=== PATIENT | male | born 1965 | race Caucasian/White ===

== ENCOUNTER 2023-05-01 20:02 | Emergency (ER) | payer OTHER, SELFPAY ==
[2023-05-01] VITALS (8 sets, daily range): BP systolic 157–187; BP diastolic 85–98; PULSE 70–86; RESP 18–22; TEMP 36.8; O2SAT 94–95; BMI 37.6
--- NOTE | 2023-05-01 20:09 | ECG_ITS ---
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 Measurements Intervals [place] Rate: 72 P: 31 MA: 130 QRS: -7 QRSD: 107 T: 39 QT: 387 QTc: 426 Interpretive Statements SINUS RHYTHM WITH SINUS ARRHYTHMIA NONSPECIFIC T-WAVE ABNORMALITY No previous ECG available for comparison Electronically Signed On 05-02-2023 2:54:09 CDT by Devonte Lange M.D. [id number]
--- NOTE | 2023-05-01 20:09 | XRR_ITS ---
PROCEDURE INFORMATION: Exam: XR Chest Exam date and time: 05/01/2023 8:27 PM Age: 57 years old Clinical indication: Pain; Chest pressure; Additional info: Chest pain TECHNIQUE: Imaging protocol: Radiologic exam of the chest. Views: 1 view. COMPARISON: CR XR chest 2V* [id number] 03/02/2017 3:37 PM FINDINGS: Lungs: Unremarkable. No consolidation. Pleural spaces: Unremarkable. No pleural effusion. No pneumothorax. Heart/Mediastinum: Cardiomegaly. Bones/joints: Unremarkable. XR/XR chest 1V portable [id number] IMPRESSION: Cardiomegaly, negative for infiltrate
--- NOTE | 2023-05-01 20:17 | ED_ITS ---
HPI - Chest Pain General: Chief Complaint: Chest Pain Stated Complaint: cp, high bp Time Seen by Provider: 05/01/23 20:09 History of Present Illness: Presents to the ER with complaints of chest pain and high blood pressure. Patient [place] any shortness of breath nausea vomiting and diaphoresis. Patient is not currently on any medicines. MD complaint: chest pain Onset (ago): hour(s) (Several hours) Timing of current episode: constant and now resolved Prior episodes: No Pain location: left chest Pain radiation: none Severity: mild Quality: sharp Relieving factors: nothing Exacerbating factors: palpation Associated symptoms: Reports no associated symptoms Treatment prior to arrival: none Review of Systems General: Reports: 10 or more systems reviewed and unremarkable except in HPI and below Physical Exam Const: COMMON NORMALS: no acute distress, average body habitus, patient oriented x3, no limitations, healthy appearing, alert and well nourished HENMT: COMMON NORMALS: normocephalic, atraumatic, hearing grossly normal bilaterally, external ears normal, Normal external nose present and moist oral mucous membranes HEAD & SCALP: normocephalic and atraumatic NOSE: Normal external nose present EXTERNAL EAR: Yes external ears normal Eye: COMMON NORMALS: Equal, round and reactive pupils present, EOMs intact bilaterally, conjunctivae normal and no scleral icterus CONJUNCTIVA: Yes conjunctivae normal PUPIL: Yes Equal, round and reactive pupils present Neck/C-Spine: COMMON NORMALS: full ROM, no lymphadenopathy, supple, no meningeal signs, no JVD and Thyroid normal THYROID: Thyroid normal Lymph: LYMPHATIC: no lymphadenopathy noted Chest: COMMONS NORMALS: normal inspection of the chest CHEST: Yes localized rib tenderness with anteroposterior compression Resp: COMMON NORMALS: normal respiratory effort, No retractions, No use of accessory muscles and clear to auscultation bilaterally AUSCULTATION: clear to auscultation bilaterally Cardio: COMMON NORMALS: no JVD, regular rate, regular rhythm, S1 normal heart sound present, S2 normal heart sound present, No gallops present (Cardio), No clicks present (Cardio), No murmurs present (Cardio) and No rub (Cardio) RATE: regular rate RHYTHM: regular rhythm HEART SOUNDS: S1 normal heart sound present and S2 normal heart sound present GI: COMMON NORMALS: Normal to inspection, nondistended, normoactive bowel sounds present, Soft to palpation, non-tender, No hepatosplenomegaly present and no masses PALPATION: Yes Soft to palpation and Yes No hepatosplenomegaly present : COMMON NORMALS: Yes no CVA tenderness BLADDER/KIDNEY EXAM: Yes no CVA tenderness Back/Pelvis: COMMON NORMALS: no CVA tenderness Neuro: COMMON NORMALS: patient oriented x3 SENSORIUM/ORIENTATION: Yes alert MENINGEAL SIGNS: Yes no meningeal signs Course Vital Signs: Vital signs: Vital Signs Temperature 98.2 F 05/01/23 20:13 Pulse Rate 82 05/01/23 22:20 Respiratory Rate 18 05/01/23 20:52 Blood Pressure 168/97 05/01/23 22:20 Pulse Oximetry 95 05/01/23 22:20 Oxygen Delivery Me thod Room Air 05/01/23 22:20 MDM - Chest Pain Medical Decision Making Patient presents to the ER with intermittent chest pain on the left side with no radiation no diaphoresis no shortness of breath no nausea vomiting. Patient does have some high blood pressure but is not currently on any medicine. Patient does state he has had this chest pain before in the past and they called costochondritis and went away after couple days. Patient's pain is reproducible with palpation. Cardiac work-up was obtained which showed CBC CMP benign, chest x-ray negative, serial troponins showed a baseline troponin is six 2-hour troponin is 7.1 for delta of 1.1. This pain is felt to be unlikely cardiac in nature. Is more likely costochondritis with reproducibility. Patient declined being put on blood pressure medicine at this moment. And said would follow-up with primary care practitioner for a full physical. Patient will be discharged home Lab Data 05/01/23 20:12 05/01/23 20:12 Radiology Impressions Chest X-Ray 05/01/23 20:09 IMPRESSION: Cardiomegaly, negative for infiltrate Laboratory Results WBC 8.4 10^3/uL (4.0-10.0) 05/01/23 20:12 RBC 4.87 10^6/uL (4.1-5.3) 05/01/23 20:12 Hgb 14.9 g/dL (11.7-16.6) 05/01/23 20:12 Hct 43.0 % (42.0-52.0) 05/01/23 20:12 MCV 88.3 fl (80-94) 05/01/23 20:12 MCH 30.6 pg (28.0-34.0) 05/01/23 20:12 MCHC 34.7 g/dL (30.0-36.0) 05/01/23 20:12 RDW 14.1 % (12.1-15.1) 05/01/23 20:12 Plt Count 244 10^3/cmm (130-400) 05/01/23 20:12 MPV 9.7 fL (7.4-10.4) 05/01/23 20:12 Neut % (Auto) 65.9 % 05/01/23 20:12 Lymph % (Auto) 23.2 % 05/01/23 20:12 [place] % (Auto) 7.9 % 05/01/23 20:12 Eos % (Auto) 2.0 % 05/01/23 20:12 Baso % (Auto) 0.5 % 05/01/23 20:12 Neut # (Auto) 5.56 10^3/uL (1.8-7.7) 05/01/23 20:12 Lymph # (Auto) 2.0 10^3/uL (0.8-4.8) 05/01/23 20:12 [place] # (Auto) 0.7 10^3/uL (0.2-0.9) 05/01/23 20:12 Eos # (Auto) 0.2 10^3/uL (0.0-0.8) 05/01/23 20:12 Baso # (Auto) 0.0 10^3/uL (0.0-0.1) 05/01/23 20:12 Nucleated RBC % (auto) 0 % 05/01/23 20:12 Nucleated RBCs # 0.0 /100WBC 05/01/23 20:12 Sodium 138 mmol/L (136-145) 05/01/23 20:12 Potassium 4.0 mmol/L (3.5-5.1) 05/01/23 20:12 Chloride 100 mmol/L (98-107) 05/01/23 20:12 Carbon Dioxide 27 mmol/L (22-29) 05/01/23 20:12 Anion Gap 15.0 (5-19) 05/01/23 20:12 BUN 15 mg/dL (6-20) 05/01/23 20:12 Creatinine 1.2 mg/dL (0.7-1.2) 05/01/23 20:12 GFR Calculation 62.0 mL/min (90-130) L 05/01/23 20:12 Glucose 87 mg/dL (65-115) 05/01/23 20:12 Calculated Osmolality 286 mOsm/kg (285-295) 05/01/23 20:12 Calcium 9.1 mg/dL (8.5-10.5) 05/01/23 20:12 Total Bilirubin 0.4 mg/dL (0.15-1.2) 05/01/23 20:12 AST 17 U/L (0-40) 05/01/23 20:12 ALT 15 U/L (0-41) 05/01/23 20:12 Alkaline Phosphatase 71 U/L (40-130) 05/01/23 20:12 Troponin T Baseline 6 ng/L (0-15) 05/01/23 20:12 Troponin T 120 Minute 7.17 ng/L (0-15) 05/01/23 21:55 Delta Troponin T 1.17 ABS# (0-10) 05/01/23 21:55 Total Protein 7.0 g/dL (6.6-8.7) 05/01/23 20:12 Albumin 4.0 g/dL (3.5-5.2) 05/01/23 20:12 Globulin 3.0 g/dL (1.3-4.6) 05/01/23 20:12 Urine Color Yellow (Yellow) 05/01/23 20:35 Urine Appearance Clear (CLEAR) 05/01/23 20:35 Urine pH 7 (5-7) 05/01/23 20:35 Ur Specific [place] 1.015 (1.005-1.030) 05/01/23 20:35 Urine Protein Neg (Negative) 05/01/23 20:35 Urine Glucose (UA) Norm (Normal) 05/01/23 20:35 Urine Ketones Negative (Negative) 05/01/23 20:35 Urine Blood Neg (Negative) 05/01/23 20:35 Urine Nitrate Negative (Negative) 05/01/23 20:35 Urine Bilirubin Neg (Negative) 05/01/23 20:35 Urine Urobilinogen Norm mg/dL (Negative) 05/01/23 20:35 Ur Leukocyte Esterase Negative (Negative) 05/01/23 20:35 EKG Data EKG 1: I personally reviewed and interpreted this EKG as follows: EKG interpretation date: 05/01/23 EKG interpretation time: 20:17 Prior EKG tracings: not available for review Interpretation: EKG showed ventricular rate of 72 beats minute, AR interval 133, QRS duration 126, QTc 406, ectopic atrial rhythm, possible right ventricular hypertrophy, moderate ST depression EKG 2: I personally reviewed and interpreted this EKG as follows: EKG interpretation date: 05/01/23 EKG interpretation time: 02:22 Prior EKG tracings: available for review Interpretation: EKG showed normal sinus rhythm, ventricular rate of 77 bpm, AR interval 122, QRS duration 110, QTc 388, possible Q waves in 2 and aVF. Discharge Plan Discharge Patient Disposition: Home Clinical Impression: Atypical chest pain High blood pressure Qualifiers: Hypertension type: primary hypertension Qualified Code(s): I10 - Essential (primary) hypertension Condition: Stable Prescriptions: No Action No Known Home Medications Discharge Orders: Discharge ED (Routine); Ordered 05/01/23 Ordered By: Lorne Fields Referrals: Thierno Moe DO [Primary Care Provider] - Patient Instructions: Chest Pain - Noncardiac, Hypertension (ED) Activity Restrictions/Additional Instructions: Please follow-up with your primary care practitioner for a complete physical for further evaluation and treatment of your chest pain and possible high blood pressure. Return to the ER if your chest pain worsens or changes. Coding Level of Care Code ED Route Sales Representative for Trevon Hicks
[2023-05-01 20:30] LABS: Basophils % 0.5 %; Eosinophils # 0.2 10^3/uL (0.0-0.8); Hemoglobin 14.9 g/dL (11.7-16.6); Lymphocytes % 23.2 %; Mean Corpuscular HGB Conc 34.7 g/dL (30.0-36.0); Mean Corpuscular Hemoglobin 30.6 pg (28.0-34.0); Mean Corpuscular Volume 88.3 fl (80-94); Mean Platelet Volume 9.7 fL (7.4-10.4); Monocytes # 0.7 10^3/uL (0.2-0.9); Monocytes % 7.9 %; Neutrophils # 5.56 10^3/uL (1.8-7.7); Neutrophils % 65.9 %; Nucleated Red Blood Cells % 0 %; Platelet Count 244 10^3/cmm (130-400); Red Blood Count 4.87 10^6/uL (4.1-5.3); Red Cell Distribution Width 14.1 % (12.1-15.1); White Blood Count 8.4 10^3/uL (4.0-10.0)
[2023-05-01 20:42] LABS: Troponin(5th) Baseline 6 ng/L (0-15)
[2023-05-01 20:44] LABS: Alanine Aminotransferase 15 U/L (0-41); Alkaline Phosphatase 71 U/L (40-130); Aspartate Amino Transferase 17 U/L (0-40); Blood Urea Nitrogen 15 mg/dL (6-20); Calcium 9.1 mg/dL (8.5-10.5); Carbon Dioxide 27 mmol/L (22-29); Chloride 100 mmol/L (98-107); Glucose 87 mg/dL (65-115); Osmolality Calculated 286 mOsm/kg (285-295); Sodium 138 mmol/L (136-145); Total Bilirubin 0.4 mg/dL (0.15-1.2)
[2023-05-01 20:55] LABS: Add Urine Microscopic? NO; Charge for UA Resulting for Rev
[2023-05-01 21:01] LABS: Bilirubin Urine Neg (Negative); Blood Urine Neg (Negative); Glucose Urine UA Norm (Normal); Ketones Urine Negative (Negative); Leukocyte Esterase Urine Negative (Negative); Nitrate Urine Negative (Negative); Protein Urine Neg (Negative); Specific Gravity, Urine 1.015 (1.005-1.030); Urine Appearance Clear (CLEAR); Urine Color Yellow (Yellow); Urobilinogen Urine Norm (Negative); pH Urine 7 (5-7)
--- NOTE | 2023-05-01 22:09 | ECG_ITS ---
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 Measurements Intervals [place] Rate: 77 P: 34 [place]: 122 QRS: -12 QRSD: 110 T: 38 QT: 357 QTc: 404 Interpretive Statements SINUS RHYTHM POSSIBLE INFERIOR MYOCARDIAL INFARCTION , PROBABLY OLD [30 ms Q WAVE IN II/aVF] Compared to ECG 05/01/2023 20:56:05 Myocardial infarct finding now present Sinus arrhythmia no longer present T-wave abnormality no longer present Electronically Signed On 05-02-2023 2:57:39 CDT by Devonte Lange M.D. [id number]
[2023-05-01 22:20] LABS: Troponin 5 2HR 7.17 ng/L (0-15)
[2023-05-01 22:27] LABS: Troponin 5 2HR Delta 1.17 ABS# (0-10)
== END 2023-05-01 22:50 | disposition home or self-care (01) ==
PROVIDERS: Emergency Provider Emergency Medicine; PCP Internal Medicine
DX: R07.89 Other chest pain (principal); I10 Essential (primary) hypertension
CPT/HCPCS: 71045; 80053; 81003; 84484; 85025; 93005; 99285